=== PATIENT | female | born 1985 | race Caucasian/White ===

== ENCOUNTER → 2024-11-25 16:24 | Outpatient (REF) | payer OTHER, SELFPAY | LOC: PNTC 16:24 | PROVIDERS: ATTENDING PHYSICIAN Obstetrics & Gynecology | DX: O09.819 Supervision of pregnancy resulting from assisted reproductive technology, unspecified trimester (principal); O14.00 Mild to moderate pre-eclampsia, unspecified trimester | CPT/HCPCS: 76805 ==

== ENCOUNTER → 2024-12-22 15:55 | Outpatient (REF) | payer OTHER, SELFPAY | LOC: PNTC 15:55 | PROVIDERS: ATTENDING PHYSICIAN Obstetrics & Gynecology | DX: O09.519 Supervision of elderly primigravida, unspecified trimester (principal); O09.819 Supervision of pregnancy resulting from assisted reproductive technology, unspecified trimester; O10.019 Pre-existing essential hypertension complicating pregnancy, unspecified trimester | CPT/HCPCS: 76811; 76817 ==

== ENCOUNTER → 2025-01-26 13:28 | Outpatient (REF) | payer OTHER, SELFPAY | LOC: PNTC 13:28 | PROVIDERS: ATTENDING PHYSICIAN Student in an Organized Health Care Education/Training Program | DX: O99.210 Obesity complicating pregnancy, unspecified trimester (principal); O10.119 Pre-existing hypertensive heart disease complicating pregnancy, unspecified trimester; O09.819 Supervision of pregnancy resulting from assisted reproductive technology, unspecified trimester | CPT/HCPCS: 76816 ==

== ENCOUNTER → 2025-02-15 16:17 | Outpatient (REF) | payer OTHER, SELFPAY | LOC: PNTC 16:17 | PROVIDERS: ATTENDING PHYSICIAN Obstetrics & Gynecology | DX: O99.210 Obesity complicating pregnancy, unspecified trimester (principal); O09.819 Supervision of pregnancy resulting from assisted reproductive technology, unspecified trimester; O10.019 Pre-existing essential hypertension complicating pregnancy, unspecified trimester | CPT/HCPCS: 76816 ==

== ENCOUNTER → 2025-03-17 11:51 | Outpatient (REF) | payer OTHER, SELFPAY | LOC: PNTC 11:51 | PROVIDERS: ATTENDING PHYSICIAN Student in an Organized Health Care Education/Training Program | DX: O99.210 Obesity complicating pregnancy, unspecified trimester (principal); O99.350 Diseases of the nervous system complicating pregnancy, unspecified trimester; O10.019 Pre-existing essential hypertension complicating pregnancy, unspecified trimester | CPT/HCPCS: 76816 ==

== ENCOUNTER 2025-03-24 12:58 | Observation (INO) | payer OTHER, SELFPAY ==
[2025-03-24 13:04] VITALS: BP 131/71; BMI 45.8
== END 2025-03-24 17:56 | disposition home or self-care (01) ==
LOC: LDRP 12:58
PROVIDERS: ADMITTING PHYSICIAN Student in an Organized Health Care Education/Training Program
DX: O10.013 Pre-existing essential hypertension complicating pregnancy, third trimester (principal); Z3A.33 33 weeks gestation of pregnancy
CPT/HCPCS: 59025; 76818

== ENCOUNTER → 2025-04-07 08:59 | Outpatient (REF) | payer OTHER, SELFPAY | LOC: PNTC 08:59 | PROVIDERS: ATTENDING PHYSICIAN Student in an Organized Health Care Education/Training Program | DX: O10.019 Pre-existing essential hypertension complicating pregnancy, unspecified trimester (principal); O99.213 Obesity complicating pregnancy, third trimester; O09.813 Supervision of pregnancy resulting from assisted reproductive technology, third trimester; O36.8330 Maternal care for abnormalities of the fetal heart rate or rhythm, third trimester, not applicable or unspecified | CPT/HCPCS: 59025; 76818 ==

== ENCOUNTER → 2025-04-14 09:51 | Outpatient (REF) | payer OTHER, SELFPAY | LOC: PNTC 09:51 | PROVIDERS: ATTENDING PHYSICIAN Student in an Organized Health Care Education/Training Program | DX: O99.210 Obesity complicating pregnancy, unspecified trimester (principal); O09.819 Supervision of pregnancy resulting from assisted reproductive technology, unspecified trimester; O10.019 Pre-existing essential hypertension complicating pregnancy, unspecified trimester | CPT/HCPCS: 59025; 76816; 76818 ==

== ENCOUNTER → 2025-04-19 11:27 | Outpatient (REF) | payer OTHER, SELFPAY | LOC: PNTC 11:27 | PROVIDERS: ATTENDING PHYSICIAN Student in an Organized Health Care Education/Training Program | DX: O09.529 Supervision of elderly multigravida, unspecified trimester (principal); O99.210 Obesity complicating pregnancy, unspecified trimester; O09.819 Supervision of pregnancy resulting from assisted reproductive technology, unspecified trimester; O10.019 Pre-existing essential hypertension complicating pregnancy, unspecified trimester | CPT/HCPCS: 59025; 76815 ==

== ENCOUNTER → 2025-04-28 11:25 | Outpatient (REF) | payer OTHER, SELFPAY | LOC: PNTC 11:25 | PROVIDERS: ATTENDING PHYSICIAN Student in an Organized Health Care Education/Training Program | DX: O99.210 Obesity complicating pregnancy, unspecified trimester (principal); O09.819 Supervision of pregnancy resulting from assisted reproductive technology, unspecified trimester; O10.019 Pre-existing essential hypertension complicating pregnancy, unspecified trimester | CPT/HCPCS: 59025; 76818 ==

== ENCOUNTER 2025-04-30 09:33 | Observation (INO) | payer OTHER, SELFPAY ==
[2025-04-30 09:39] VITALS: BP 143/78; BMI 49.4
== END 2025-04-30 12:45 | disposition home or self-care (01) ==
LOC: LDRP 09:33
PROVIDERS: ADMITTING PHYSICIAN Obstetrics & Gynecology
DX: O10.913 Unspecified pre-existing hypertension complicating pregnancy, third trimester (principal); Z3A.38 38 weeks gestation of pregnancy
CPT/HCPCS: 76818; 36415; 76819; 86850; 86900; 86901; G0378

== ENCOUNTER 2025-05-03 19:14 | Inpatient (IN) | payer OTHER, SELFPAY ==
[2025-05-03 19:21] VITALS: BP 124/62; BMI 49.9
[2025-05-03 20:03] LABS: Hematocrit 32.7 % (37.0-47.0); Hemoglobin 11.2 g/dL (12.0-16.0); Mean Corp Hgb Conc. 34.3 g/dL (33.0-37.0); Mean Corpuscular Volume 88.1 fL (81.0-99.0); Nucleated Red Blood Cells % 0 %; Platelet Count 248 10^3/uL (130-400); Red Cell Dist. Width 14.1 % (11.5-14.5)
[2025-05-03] MEDS: CYTOTEC 25 MICROGRAM VAG (20:04)
[2025-05-03] MEDS: TRANDATE 200 MG PO (20:04)
[2025-05-03] MEDS: BENADRYL 50 MG PO (20:41)
[2025-05-03] MEDS: ATIVAN 1 MG PO (20:41)
[2025-05-03 21:08] LABS: ALT (SGPT) 24 U/L (0-35); AST (SGOT) 24 U/L (14-36); Albumin 3.4 g/dl (3.5-5.0); Alkaline Phosphatase 145 U/L (38-126); Blood Urea Nitrogen 14 mg/dl (7-17); Calcium 9.4 mg/dl (8.4-10.2); Carbon Dioxide 26 mmol/L (22-30); Chloride 104 mmol/L (98-107); Estimated Creatinine Clearance > 125 ml/min; Glucose 107 mg/dl (70-99); Potassium 4.3 mmol/L (3.5-5.1); Sodium 135 mmol/L (135-145); Total Protein 5.9 g/dl (6.3-8.2); eGFR > 60.00
[2025-05-04] MEDS: CYTOTEC 25 MICROGRAM PO (00:07)
[2025-05-04] MEDS: LR 1000 IV ×3 (00:08→22:34)
[2025-05-04] MEDS: CYTOTEC PO ×5 (06:34→20:03)
[2025-05-04] MEDS: TRANDATE 200 MG PO ×2 (08:09→20:02)
[2025-05-04] MEDS: PENICILLIN 110 UNITS IV (09:00)
[2025-05-04] MEDS: PITOCIN 30 UNITS/NSS 500 ML IV (09:00)
[2025-05-04] MEDS: PENICILLIN 55 UNITS IV ×3 (13:03→21:00)
[2025-05-04] MEDS: STADOL 1 MG IV (16:30)
[2025-05-04] MEDS: FENTANYL/BUPIVACAINE 100 EPIDURAL (18:32)
[2025-05-04] MEDS: SUBLIMAZE 100 MCG EPIDURAL (18:32)
[2025-05-04] MEDS: COLACE 100 MG PO (20:02)
[2025-05-05] MEDS: PENICILLIN 55 UNITS IV ×2 (00:58→05:06)
[2025-05-05] MEDS: CYTOTEC PO ×3 (01:01→09:51)
[2025-05-05] MEDS: ATIVAN 1 MG PO (01:46)
[2025-05-05] MEDS: FENTANYL/BUPIVACAINE 100 EPIDURAL (02:15)
[2025-05-05] MEDS: TYLENOL 975 MG PO (07:22)
[2025-05-05] MEDS: BICITRA 30 ML PO (07:23)
[2025-05-05] MEDS: ANCEF 15 MG IV (07:23)
[2025-05-05] MEDS: ZITHROMAX INFUSION 250 IV (07:24)
[2025-05-05] MEDS: PITOCIN 30 UNITS/NSS 500 ML IV ×2 (08:00→11:50)
[2025-05-05] MEDS: PENICILLIN IV (09:52)
[2025-05-05] MEDS: COLACE 100 MG PO ×2 (09:58→20:29)
[2025-05-05] MEDS: TRANDATE 200 MG PO ×2 (09:58→20:29)
[2025-05-05] MEDS: LR 1000 IV ×2 (10:02→17:30)
[2025-05-05] MEDS: TORADOL 15 MG IV ×3 (11:01→23:06)
[2025-05-05] MEDS: ZOFRAN 4 MG IV (11:05)
[2025-05-06] MEDS: TYLENOL 650 MG PO ×4 (01:21→23:50)
[2025-05-06] MEDS: ATIVAN 1 MG PO (01:30)
[2025-05-06 05:10] LABS: Hematocrit 26.7 % (37.0-47.0); Hemoglobin 9.1 g/dL (12.0-16.0); Mean Corp Hgb Conc. 34.1 g/dL (33.0-37.0); Mean Corpuscular Volume 91.4 fL (81.0-99.0); Platelet Count 214 10^3/uL (130-400); Red Cell Dist. Width 14.4 % (11.5-14.5)
[2025-05-06] MEDS: TORADOL 15 MG IV (06:38)
[2025-05-06] MEDS: COLACE 100 MG PO ×2 (07:44→19:28)
[2025-05-06] MEDS: TRANDATE 200 MG PO ×2 (07:45→19:28)
[2025-05-06] MEDS: FEOSOL 325 MG PO (07:45)
[2025-05-06] MEDS: PRENATAL PLUS 1 TABLET PO (07:45)
--- NOTE | 2025-05-06 07:48 | W.PN.ANS.POP ---
Anesthesia Post Operative
- Anesthesia Post Op Note
Vital Signs Stable-See Nursing Note: Yes
Airway Patent: Yes
Adequate Pain Control: Yes
Change in Mental Status: No
Current Postoperative Nausea & Vomiting: No
Anesthesia Complications: No
General Anesthetic Recall: No
Unplanned Admission: No
Post Op Hydration Adequate: Yes
- -
Pt awake and alert, OOB to chair with no anesthesia related c/o at time of post op visit.
[2025-05-06] MEDS: MOTRIN 600 MG PO ×2 (16:18→22:31)
[2025-05-07] MEDS: TYLENOL 650 MG PO ×2 (04:43→10:26)
[2025-05-07] MEDS: MOTRIN 600 MG PO ×2 (04:43→10:26)
[2025-05-07] MEDS: FEOSOL 325 MG PO (07:23)
[2025-05-07] MEDS: PRENATAL PLUS 1 TABLET PO (07:24)
[2025-05-07] MEDS: COLACE 100 MG PO (07:25)
[2025-05-07] MEDS: TRANDATE 200 MG PO (07:25)
[2025-05-07 13:16] LABS: Syphilis/T. pallidum Ab Reflex Negative (Negative)
--- NOTE | 2025-05-10 16:53 | W.DS.TRANS ---
DC Summary - Manager Social Work
-
Discharge Instructions:
Discharge Diagnosis/Procedures section for arrest of dilation, chronic
hypertension
Diet No restrictions
Activity No strenuous activity
Driving Restrictions No driving for 2 weeks
Bathing Restrictions OK to Shower
Instructions:
Stand-Alone Forms: LDRP Delivery
LDRP Hypertensive Disorders
Changes to Home Medications: No
Discharge Medications:
DC Medications w/original date entered in [employer]
labetalol 200 mg tablet 200 mg PO BID Blood Pressure 03/24/25
Iron (ferrous sulfate) 65 mg PO DAILY Supplement 05/03/25
prenat.vits,garo,fhq-gaip-mdllj 1 tab PO DAILY Supplement 05/03/25
acetaminophen 325 mg tablet 650 mg (2 x 325 mg) PO Q4HPRN PRN mild pain #1 tab 05/07/25
ibuprofen 600 mg tablet 600 mg PO Q6HPRN PRN cramps #60 tabs 05/07/25
docusate sodium 100 mg capsule (Colace) 100 mg PO DAILY Gastrointestinal Issue 05/09/25
Home Medication Changes
Pending Results: No
--- NOTE | 2025-05-10 16:54 | W.DCSUMMARY ---
Discharge Summary
Discharge Data
Date of Admission: 05/03/25
Date of Discharge: 05/07/25
-
Pending Results: No
Hospital Course
Patient is a 39yo @39.2 who presented to labor and delivery for induction of labor on 05/03 for chronic hypertension on labetalol 200mg BID, advanced maternal age, and IVF . On admission, she was 1/70 and induction was started with
Cytotec. On the morning of 05/04, she had made minimal change and was 4/80. She was offered a Cook balloon, but declined. Pitocin was started. At 1400, she was unchanged and was again offered a cook balloon. Cook balloon was placed at 1530. Around
1820, she received an epidural. At 2130, the cook balloon was out and she was 6/80/-2. Artificial rupture of membranes was performed for blood tinged fluid. At 0125, she was 7/80/-2. She remained unchanged at 0630 and was offered to continue with
induction or proceed with primary section for arrest of labor and she wanted to proceed with primary section. On 05/05, she underwent primary low transverse section, delivering a viable male infant. The procedure was
complicated by a qualitative blood loss of 1270cc. On postop day one, her hemoglobin was 9.1. She was complaining of shortness of breath and given her risk factors, PE study was ordered. PE study was negative. On postop day two, she was doing well
with no concerns and desired early discharge home. She was tolerating a regular diet, voiding spontaneously, passing flatus and had no heavy lochia. Her blood pressures were well controlled on labetalol 200mg BID and she had no signs of
preeclampsia. She was discharged home after discharge instructions and return precautions were reviewed. She was instructed to follow up in 2 weeks for an incision check. Signs and symptoms of preeclampsia were also reviewed.
Discharge Plan
-
Patient Disposition: Home (Routine Discharge)
Discharge Diagnosis/Procedures: section for arrest of dilation, chronic hypertension
Condition: Good
Diet: No restrictions
Activity: No strenuous activity
Driving Restrictions: No driving for 2 weeks
Bathing Restrictions: OK to Shower
Stand Alone Forms: LDRP Delivery, LDRP Hypertensive Disorders
Referrals:
UNKNOWN - PT NOT,INTERVIEWE [Family Provider]
Monica Forbes MD [Active, Gynecology] - in two weeks
Prescriptions:
New
acetaminophen 325 mg Tablet
650 mg PO Q4HPRN PRN (Reason: mild pain) Qty: 1 0RF
ibuprofen 600 mg Tablet
600 mg PO Q6HPRN PRN (Reason: cramps) Qty: 60 0RF
Continued
labetalol 200 mg Tablet
200 mg PO BID
prenat.vits,garo,gyt-cmqq-qkljf Tablet
1 tab PO DAILY
Iron (ferrous sulfate)
65 mg PO DAILY
Discontinued
Baby Aspirin
81 mg PO DAILY
No Action
docusate sodium [Colace] 100 mg Capsule
100 mg PO DAILY
Discharge Orders:
Discharge Patient (As Directed); Ordered 05/07/25
Ordered By: Jessy Mello
Discharge Date and Time
Discharge Date/Time: 05/07/25 15:15
Print Language: GUAMANIAN
== END 2025-05-07 15:15 | disposition home or self-care (01) | DRG 788 ==
LOC: LDRP 19:14
PROVIDERS: Obstetrics & Gynecology; ADMITTING PHYSICIAN Obstetrics & Gynecology
PROC: 10D00Z1 Extraction of Products of Conception, Low, Open Approach (ICD-10-PCS; 2025-05-05)
DX: O62.0 Primary inadequate contractions (principal); Z3A.39 39 weeks gestation of pregnancy; Z37.0 Single live birth; O16.4 Unspecified maternal hypertension, complicating childbirth; O99.824 Streptococcus B carrier state complicating childbirth; O99.284 Endocrine, nutritional and metabolic diseases complicating childbirth; E28.2 Polycystic ovarian syndrome; D25.9 Leiomyoma of uterus, unspecified; O34.13 Maternal care for benign tumor of corpus uteri, third trimester
CPT/HCPCS: 71275; 80053; 85025; 85027; 86780; 86850; 86900; 86901; 88307; Q9967

== ENCOUNTER 2025-05-09 06:26 | Inpatient (IN) | payer OTHER, SELFPAY ==
[2025-05-09] VITALS (7 sets, daily range): BP systolic 142–178; BP diastolic 71–82; BMI 50.1; BMI 47.7
--- NOTE | 2025-05-09 03:42 | ED.GENMED ---
History of Present Illness
<Brigida Shetty MD, Resident - Last Filed: 05/09/25 06:48>
General
Chief Complaint: Breathing Problem
Time Seen by Provider: 05/09/25 03:46
History of Present Illness
History of Present Illness:
Patient is a 39-year-old female who presents to the emergency department with complaints of shortness of breath, pain on deep inspiration, and a rattling sound in her chest. She was recently discharged from [facility] after undergoing a
. she was in labor for greater than 24 hours on Pitocin and following her labor she had persistent edema with shortness of breath prompting a CT PE to be conducted. CT PE conducted on 05/06/2025 was without any evidence of acute pulmonary
thromboembolism. She was discharged and believe that she was slowly improving but unfortunately this evening she started to experience a rib and chest pain localized to the right side of her chest at around 7 PM. She went to sleep but was woken up
by family after they heard her having a rattling sound in her chest around 12:30 AM. she states that the edema in her thighs is slightly improved but she continues to have persistent pedal edema. She does not have any nausea vomiting or diarrhea.
She does not have any chest pain, dizziness, or signs of syncope.
Past History
<Brigida Shetty MD, Resident - Last Filed: 05/09/25 06:48>
Past History
ED Past Medical History: HTN and Psychiatric ( anxiety)
ED Past Surgical History:
Social History
Tobacco: Non-smoker
Alcohol: Occasional
Drug: None
Personal:
Living: with family
Review of Systems
<Brigida Shetty MD, Resident - Last Filed: 05/09/25 06:48>
Review of Systems
Constitutional: Reports no symptoms
EENT: Reports no symptoms
Respiratory: Reports trouble breathing
Cardiac: Reports no symptoms
ABD/GI: Reports no symptoms
: Reports no symptoms
Musculoskeletal: Reports no symptoms
Skin: Reports no symptoms
Neurological: Reports no symptoms
Endocrine: Reports no symptoms
Hematologic/Lymphatic: Reports no symptoms
Psychiatric: Reports no symptoms
Phy Exam
<Brigida Shetty MD, Resident - Last Filed: 05/09/25 06:48>
General Physical Exam
General Presentation: well appearing and no apparent distress
General age: appears stated age
General Skin: warm and dry
General Habitus: normal
General Mental: alert
General Hydration: appears well hydrated
Cardiovascular Exam
Cardiovascular Exam: regular rate/rhythm, no gallop, no JVD, no murmur and other ( 3+ pedal edema bilaterally)
Pulmonary Exam
Breath Sounds: Crackles: left upper, left lower, right upper, right lower and generalized and Rhonchi: left upper, left lower, right upper, right lower and generalized
Musculoskeletal Exam
Musculoskeletal Exam: edema ( 3+ pedal edema bilaterally)
Skin Exam
Skin Exam: normal color and warm/dry
Psychiatric Exam
Psychiatric Exam: normal mood/affect
Scores
<Fransisca Garg, DO - Last Filed: 05/09/25 07:32>
Heart Failure Risk
Heart Failure Risk Score: Yes
History of Stroke or TIA: No
History of intubation for respiratory distress: No
Heart rate on ED arrival >/= 110: No
SaO2 <90% on arrival on room air: Yes
HR >/=110 during 3min walk test (or too ill to perform test): Yes
ECG has acute ischemic changes: No
Urea >/=12mmol/L (BUN 33.6mg/dL): No
Serum CO2>/=35mmol/L: No
Troponin I or T elevated to VA Level (0.4mg/dL): No
NT-proBNP >/=5,000ng/L (5,000pg/ml): No
HF Risk Score: 3
Admission Status: HIGH RISK 15.9% Consider SNF treatment or admission to hospital
Course
<Brigida Shetty MD, Resident - Last Filed: 05/09/25 06:48>
Orders/Labs/Results
Orders:
Orders
05/09/25 03:43
CR Chest - 2 Views Urgent
Comment:
Reason For Exam: Shortness of breath, rhonchi+ crackles bilaterally
05/09/25 03:48
Add On- LAB Urgent
Tests Added?: BNP
Electrocardiogram (*1) Urgent
Reason for Study: Shortness of Breath
EKG- Treatment ONCE
05/09/25 03:55
Complete Blood Count/No Diff Urgent
Comprehensive Metabolic Panel Urgent
D-Dimer Urgent
NT-proBNP Urgent
Comment: ADD ON
Troponin I Urgent
Ipratropium/Albuterol Sulfate [Duoneb] 3 ml INH R NOW STA
05/09/25 05:15
Furosemide [Lasix] 40 mg IV ONCE ONE
05/09/25 06:07
Admit/Transfer Patient As Directed
Co-Sign Provider:
Level of Care: Inpatient admission
Assign to:: Telemetry
Physician / Group: Mk
Diagnosis: New onset CHF
Reason for Telemetry: Subacute Heart Failure
Date to Stop Telemetry: 05/11/25
Time to Stop Telemetry: 11:00
Reason for Hospitalization: CHF
Expected length of stay greater than two midnights?: Yes
ELOS- Estimated Length of Stay in days: 2
I certify the patient meets the requirements for IP care: Yes
PRN Pain Medication Management As Directed
May give lesser potent ordered pain med per pt: Yes
preference::
Protocol:: Medication orders for pain may be administered in a
manner that supports deferring to patient preference
when the pt is:
- Requesting an ordered lesser potent pain medication.
Least to most potent pain medications are defined
as: acetaminophen < NSAID < tramadol < opioids
(morphine, oxycodone, hydromorphone).
- Requesting a lesser dose of the same medication IF
ORDERED.
- Requesting a less intrusive route of administration
if both routes are prescribed by the provider (PO <
IV).
05/09/25 06:08
Code Status As Directed
Resuscitation Status: Full Code
05/11/25 11:00
DC Protocol for Telemetry ONCE
Abnormal Lab Results
05/09/25
03:55
WBC 13.5 H 10^3/uL
(4.8-10.8)
RBC 2.92 L 10^6/uL
(4.20-5.40)
Hgb 9.0 L g/dL
(12.0-16.0)
Hct 26.4 L %
(37.0-47.0)
D-Dimer 1.67 H ug/mlFEU
(0.00-0.50)
BUN 25 H mg/dl
(7-17)
Total Protein 5.3 L g/dl
(6.3-8.2)
Albumin 3.0 L g/dl
(3.5-5.0)
05/09/25 03:55
05/09/25 03:55
Vital Signs
Initial and Last Documented VS:
Initial Vital Signs
Temp Pulse Resp BP Pulse Ox
98 F 66 22 148/76 91
05/09/25 03:06 05/09/25 03:06 05/09/25 03:06 05/09/25 03:06 05/09/25 03:06
Last Documented Vital Signs
Temp Pulse Resp BP Pulse Ox
98 F 69 19 142/71 90
05/09/25 03:06 05/09/25 06:30 05/09/25 06:30 05/09/25 05:20 05/09/25 03:58
<Fransisca Garg, DO - Last Filed: 05/09/25 07:32>
Orders/Labs/Results
Orders:
Orders
05/09/25 03:43
CR Chest - 2 Views Urgent
Comment:
Reason For Exam: Shortness of breath, rhonchi+ crackles bilaterally
05/09/25 03:48
Add On- LAB Urgent
Tests Added?: BNP
Electrocardiogram (*1) Urgent
Reason for Study: Shortness of Breath
EKG- Treatment ONCE
05/09/25 03:55
Complete Blood Count/No Diff Urgent
Comprehensive Metabolic Panel Urgent
D-Dimer Urgent
NT-proBNP Urgent
Comment: ADD ON
Troponin I Urgent
Ipratropium/Albuterol Sulfate [Duoneb] 3 ml INH R NOW STA
05/09/25 05:15
Furosemide [Lasix] 40 mg IV ONCE ONE
05/09/25 06:07
Admit/Transfer Patient As Directed
Co-Sign Provider:
Level of Care: Inpatient admission
Assign to:: Telemetry
Physician / Group: Mk
Diagnosis: New onset CHF
Reason for Telemetry: Subacute Heart Failure
Date to Stop Telemetry: 05/11/25
Time to Stop Telemetry: 11:00
Reason for Hospitalization: CHF
Expected length of stay greater than two midnights?: Yes
ELOS- Estimated Length of Stay in days: 2
I certify the patient meets the requirements for IP care: Yes
PRN Pain Medication Management As Directed
May give lesser potent ordered pain med per pt: Yes
preference::
Protocol:: Medication orders for pain may be administered in a
manner that supports deferring to patient preference
when the pt is:
- Requesting an ordered lesser potent pain medication.
Least to most potent pain medications are defined
as: acetaminophen < NSAID < tramadol < opioids
(morphine, oxycodone, hydromorphone).
- Requesting a lesser dose of the same medication IF
ORDERED.
- Requesting a less intrusive route of administration
if both routes are prescribed by the provider (PO <
IV).
05/09/25 06:08
Code Status As Directed
Resuscitation Status: Full Code
05/11/25 11:00
DC Protocol for Telemetry ONCE
Abnormal Lab Results
05/09/25
03:55
WBC 13.5 H 10^3/uL
(4.8-10.8)
RBC 2.92 L 10^6/uL
(4.20-5.40)
Hgb 9.0 L g/dL
(12.0-16.0)
Hct 26.4 L %
(37.0-47.0)
D-Dimer 1.67 H ug/mlFEU
(0.00-0.50)
BUN 25 H mg/dl
(7-17)
Total Protein 5.3 L g/dl
(6.3-8.2)
Albumin 3.0 L g/dl
(3.5-5.0)
05/09/25 03:55
05/09/25 03:55
Vital Signs
Initial and Last Documented VS:
Initial Vital Signs
Temp Pulse Resp BP Pulse Ox
98 F 66 22 148/76 91
05/09/25 03:06 05/09/25 03:06 05/09/25 03:06 05/09/25 03:06 05/09/25 03:06
Last Documented Vital Signs
Temp Pulse Resp BP Pulse Ox
98 F 69 19 142/71 90
05/09/25 03:06 05/09/25 06:30 05/09/25 06:30 05/09/25 05:20 05/09/25 03:58
<Brigida Shetty MD, Resident - Last Filed: 05/09/25 06:48>
*Pulse Oximetry
SaO2: 90
Oxygen Mode of Delivery: Room air
Patient hypoxic: no
*Critical Care Note
Total Time (30-74mins, 75-104mins- exclusive of procedures): 60
<Fransisca Garg, DO - Last Filed: 05/09/25 07:32>
*Radiology
Radiology exam reviewed: preliminary read by ED provider
*Pulse Oximetry
Patient hypoxic: yes
*EKG
Interpreted by ED Provider?: Yes
Interpretation: normal
Comparison EKG: no comparison EKG present
Rate: normal
Rhythm: sinus
[place]: normal axis
Interval: normal interval
QRS Pattern: normal QRS
Ischemia: no ischemia
*[employer] Interpretation
Rate: normal
Interpretation: normal
Rhythm: sinus
*Critical Care Note
Total Time (30-74mins, 75-104mins- exclusive of procedures): Not Applicable
<Brigida Shetty MD, Resident - Last Filed: 05/09/25 06:48>
Update Note
Update Note:
Problem List:
Chest pain radiating to the back
shortness of breath
bilateral pedal edema
Plan:
CBC and CMP ordered
D-dimer ordered
chest x-ray ordered
proBNP ordered
troponins
DuoNebs given
Differential Diagnoses:
post pulmonary edema
pulmonary embolus
pneumonia
Radiology:
- chest x-ray conducted on 05/09/2025:
EKG:
- EKG on 05/09/2025:
Labs:
CBC with leukocytosis of 13.5 white blood cell count
D-dimer
CMP
Updates:
Patient pleasant and not in acute distress. Room pulse ox is at 90% on room air. Patient appears nontoxic
there is concern for acute CHF, acute asthmatic bronchitis, pneumonia.
Rales and rhonchi heard on auscultation. Based on presentation PE is less likely - Especially considering CT PE was done prior to her discharge a few days prior.
Will give DuoNebs and check CXR
CXR is concerning for possible CHF with mild cardiomegaly.
BNP elevated at 1430. troponins within normal limits
IV Lasix is given
plan to admit to hospital service for possible fluid overload. Gynecology consulted
recommend telemetry and echocardiogram
ED Attending Note
<Brigida Shetty MD, Resident - Last Filed: 05/09/25 06:48>
-
Portions of this chart may have been created with voice recognition software.� Occasional wrong word or��sound alike� substitutions may have occurred due to the inherent limitations of voice recognition software.
<Fransisca Garg DO - Last Filed: 05/09/25 07:32>
ED Attending Note
Patient seen and examined by attending physician: Yes
I performed a history and physical exam of patient and discussed management with resident, I reviewed resident's note and agree with documented findings and plan of care.: Yes
ED Attending Note:
This is a 39-year-old woman 1, para 1 who delivered via 3 days ago due to failure to progress after 3 days of induction with Pitocin. She has history of obesity, chronic hypertension and was noted to have bilateral lower extremity
edema towards the end of her that has worsened over the past week. Noted to have shortness of breath postop day 1 and underwent unremarkable PE study showing no PE, no consolidation. Discharged to home yesterday, May 08. Male
is bottlefeeding.
She presents this morning with increasing shortness of breath, worse at nighttime with lying down with a 'gurgling noises' when breathing. She has not had a cough, no fever and or chills. She has noted intermittent bilateral lateral lower chest
discomfort that radiates to her back intermittently, more so with lying supine. She continues with bilateral lower extremity edema but denies pain.
Chronically maintained on labetalol for hypertension. She states her blood pressure was well-controlled throughout her .
39-year-old obese woman appears her stated age. Bright alert, pleasant, appears in no acute distress. Room air pulse ox 90%. Mild resting tachypnea. No cough appreciated.
Heart is regular rate and rhythm.
Lungs with rales and rhonchi bilaterally three-quarter to the way up.
Abdomen is rotund, soft, no appreciable tenderness.
Extremities with somewhat tense mildly pitting edema bilateral lower extremities to the thighs. Peripheral pulses are full and equal. Nontender.
Concern for acute CHF, acute asthmatic bronchitis, pneumonia. Concern for -induced cardiomyopathy.
With rales and rhonchi on auscultation, PE is unlikely. Also reassuring that PE study was negative just 3 days ago.
Labs are pending. Will give DuoNeb nebulizer. Will check chest x-ray.
05:30
Chest x-ray concerning for mild CHF, mild cardiomegaly. BNP elevated 1400.
EKG is unremarkable. Troponin is negative.
Will give an IV dose of Lasix.
Will plan to admit to hospital service and consult [facility].
Patient will require ongoing telemetry and will require echocardiogram.
Discharge Plan
Departure
Patient Disposition: Admit
Date of Disposition: 05/09/25
Time of Disposition: 05:42
Admit to doctor: Mk
Presentation/result/management discussed w/ accepting MD/DO: Hospitalist
Discharge Problem:
Acute CHF (congestive heart failure)
Interventions
Interventions:
*Risk Screen - Suicide Last Done: 05/09/25 03:17
*General Assessment Last Done: 05/09/25 03:17
*Neglect/Abuse Screening Last Done: 05/09/25 03:17
*ED- Fall Risk Assessment Last Done: 05/09/25 03:17
*ED COVID-19 Vaccine History Last Done: 05/09/25 03:17
ED- Cardiac Assessment Last Done: 05/09/25 03:17
ED- Pulmonary Assessment Last Done: 05/09/25 03:17
[2025-05-09] MEDS: DUONEB 3 ML INH (04:06)
[2025-05-09 04:08] LABS: Hematocrit 26.4 % (37.0-47.0); Hemoglobin 9.0 g/dL (12.0-16.0); Mean Corp Hgb Conc. 34.1 g/dL (33.0-37.0); Mean Corpuscular Volume 90.4 fL (81.0-99.0); Platelet Count 279 10^3/uL (130-400); Red Cell Dist. Width 14.1 % (11.5-14.5)
[2025-05-09 04:30] LABS: ALT (SGPT) 31 U/L (0-35); AST (SGOT) 25 U/L (14-36); Albumin 3.0 g/dl (3.5-5.0); Alkaline Phosphatase 112 U/L (38-126); Blood Urea Nitrogen 25 mg/dl (7-17); Calcium 9.7 mg/dl (8.4-10.2); Carbon Dioxide 27 mmol/L (22-30); Chloride 107 mmol/L (98-107); Estimated Creatinine Clearance 120 ml/min; Glucose 82 mg/dl (70-99); Potassium 4.7 mmol/L (3.5-5.1); Sodium 136 mmol/L (135-145); Total Protein 5.3 g/dl (6.3-8.2); eGFR > 60.00
[2025-05-09 04:41] LABS: D-Dimer 1.67 ug/mlFEU (0.00-0.50); Troponin I < 0.012 ng/ml
[2025-05-09] MEDS: LASIX 40 MG IV (05:20)
--- NOTE | 2025-05-09 05:49 | HPS.HSE ---
Family Physician
-
Family Physician: Griffin Alvarado
Chief Complaint
-
Shortness of breath
History of Present Illness
This is a ten 9-year-old with past medical history significant for anxiety and hypertension and is now postop day 4 status post with discharge 2 days ago coming to the hospital with shortness of breath that started tonight as well as
hearing rattling sounds in the lungs.
Patient reported that prior to the surgery she has been having episodes of anxiety and she felt that she was having some panic attacks. She also developed claustrophobia and says she was very stressed. She is now G1, P1. She denies any
uncontrolled hypertension during the . She denies any proteinuria during . She had appropriate weight gain and some pedal edema but denies dyspnea on exertion chest pain palpitations orthopnea or PND during .
Patient had induction with Pitocin starting on Saturday and had IV fluids old with close day without spontaneous delivery so she underwent . Post patient complained of abdominal/rib pain. She had a CT scan which rule out
embolus and had clear lungs. After discharge patient went home feeling better but today noticed some increased rib discomfort with inspiration. When she laid down she could hear some crackling and slightly wheezing sounds coming from her lungs.
Mother noticed this and requested that she be evaluated. Patient self denies orthopnea or PND. She has not been moving much lately and denies known dyspnea on exertion. She has no known sick contacts. She denies any fevers or chills. She denies
any coughing. She denies any chest pain.
On arrival in the emergency department she was afebrile, blood pressure was 140/70 with a pulse rate of 58 and she was satting 90% on room air at rest. ECG shows a sinus rhythm at a rate of 66. Chest x-ray shows increased interstitial markings and
vascular congestion without any consolidation. She had a white count 13.5 hemoglobin 9.0 and platelet 279 unchanged. Electrolytes BUN and creatinine were normal. Glucose was normal. Troponin was negative. BNP was elevated at 1400. CT PE from
9/11, was negative for PE and had clear parenchyma.
Medical History
Past Medical History
Past Medical History: Reports HTN
Past Surgical History: Reports
Social History
Tobacco: Non-smoker
Alcohol: None
Drug: None
Personal:
Family History
Family History: Not pertinent
Allergies / Home Medications
Allergies reflects when Allergies were last updated in [employer].
Home Medications with original date entered in [employer]
Allergy/Medication List:
Allergies
Allergy/AdvReac Type Severity Reaction Status Date / Time
amlodipine Allergy Swelling Verified 05/09/25 03:10
Sulfa (Sulfonamide Allergy Itching Verified 05/09/25 03:10
Antibiotics)
Home Medications
labetalol 200 mg tablet 200 mg PO BID Blood Pressure 03/24/25
Iron (ferrous sulfate) 65 mg PO DAILY Supplement 05/03/25
prenat.vits,garo,alm-kphu-mfviy 1 tab PO DAILY Supplement 05/03/25
acetaminophen 325 mg tablet 650 mg (2 x 325 mg) PO Q4HPRN PRN mild pain #1 tab 05/07/25
ibuprofen 600 mg tablet 600 mg PO Q6HPRN PRN cramps #60 tabs 05/07/25
docusate sodium 100 mg capsule (Colace) 100 mg PO DAILY 05/09/25
Review of Systems
-
Constitutional: Reports No Symptoms
EENT: Reports No Symptoms
Respiratory: Reports Trouble Breathing
Cardiac: Reports No Symptoms
Abdomen/GI: Reports No Symptoms
: Reports No Symptoms
Musculoskeletal: Reports No Symptoms
Skin: Reports No Symptoms
Neurological: Reports No Symptoms
Endocrine: Reports No Symptoms
Hematologic/Lymphatic: Reports No Symptoms
Psych: Reports No Symptoms
Physical Exam
Vital Signs
Vital Signs
Temp Pulse Resp BP Pulse Ox
98 F 62 22 142/71 90
05/09/25 03:06 05/09/25 05:30 05/09/25 05:30 05/09/25 05:20 05/09/25 03:58
Physical Exam
General: Well Developed, Well Nourished and No Apparent Distress
HEENT: NormoCephalic, Moist mucous membranes and Atraumatic
Respiratory: Clear
Cardiac: S1/S2 and Regular Rhythm; No Murmur or Rub
GI: Soft, Non Tender, Non Distended and Normal Bowel Sounds; No Organomegaly
Rectal: Deferred by Provider
Musculoskeletal: No Clubbing, No Cyanosis and No Edema
Skin: No Rash
Neuro: AO x 3 and Nonfocal/grossly intact
Psych: Anxious (very anxious and began crying unconsolably after learning she needed to stay overnight. )
Laboratory Results
-
05/09/25 03:55
05/09/25 03:55
Laboratory Results
Total Bilirubin 0.4 mg/dl (0.2-1.3) 05/09/25 03:55
AST 25 U/L (14-36) 05/09/25 03:55
ALT 31 U/L (0-35) 05/09/25 03:55
Alkaline Phosphatase 112 U/L (38-126) 05/09/25 03:55
Troponin I < 0.012 ng/ml 05/09/25 03:55
Data Reviewed
-
Diagnostic Radiology: Image Personally Visualized and interpreted
CT Scan: Report Reviewed by me
Medical Tests (Nuc Med, Echo, EKG etc): Image Personally Visualized and interpreted
Lab Data: Labs Reviewed by me
Old Records: Reviewed
Impression/Plan
-
IMPRESSION:
39-year-old female G1, P1 postop day #4 status post , coming in with shortness of breath and found hypoxia to 90% on room air at rest. She has 1+ pitting edema in the lower extremities bilaterally. X-ray has increased vascular markings
and increased interstitial markings. BNP is elevated at 1400. No elevations in JVD. She has some volume overload and probably nonischemic cardiomyopathy possibly related to stress. Patient is extremely anxious and reports recent anxiety attacks
and claustrophobia 1 month prior to onset of delivery. Chronic hypertension but well-controlled with labetalol prior to and during . Family history of heart disease but likely noncontributory. No sick contacts to suggest viral
cardiomyopathy. No signs of active infection. CT PE negative for PE on 9�11.
PLAN:
New onset congestive heart failure -suspect possibly stress cardiomyopathy versus volume reconstitution after extensive IV fluids presurgical procedure.
- Admit to telemetry observation
- Continue with Lasix 40 mg IV twice daily for now
- Continue labetalol for now
- Trend troponin
- Echo likely tomorrow
- Daily weights and ins and outs
- Cardiology consultation
DVT prophylaxis�SCDs
CODE STATUS�full code
--- NOTE | 2025-05-09 07:55 | W.PN.HOSP.TC ---
Today's Communication/Plan
-
Patient has completely improved and feels fine, and she really would like to go home. Discharge today
Assessment / Plan
Assessment / Plan
Physical Exam
General: Well Developed, Well Nourished and No Apparent Distress
HEENT: Normocephalic, Moist Mucous Membranes
Respiratory: Faint to mild crackles
Cardiac: S1/S2 and Regular Rhythm
GI: Soft, Non Tender, Non Distended and Normal Bowel Sounds
Musculoskeletal: No Cyanosis and No Edema
Skin: Warm. Dry.
Neuro: AAO x 3 and Nonfocal/grossly intact
Psych: Anxious
Assessment/Plan
39-year-old female G1, P1 postop day #4 (on admission) status post , coming in with shortness of breath and found hypoxia to 90% on room air at rest. She has 1+ pitting edema in the lower extremities bilaterally. X-ray has increased
vascular markings and increased interstitial markings. BNP is elevated at 1400. No elevations in JVD. She has some volume overload and probably nonischemic cardiomyopathy possibly related to stress. Patient is extremely anxious and reports
recent anxiety attacks and claustrophobia 1 month prior to onset of delivery. Chronic hypertension but well-controlled with labetalol prior to and during . Family history of heart disease but likely noncontributory. No sick contacts to
suggest viral cardiomyopathy. No signs of active infection. CT PE negative for PE on 9�11.
Suspected Flash Pulmonary Edema
- Suspected secondary to aggressive intravenous fluid regimen around 05/03 to 05/05 with 7 to ~12 L of of IV fluids
- Continue with Lasix 40 mg IV twice daily for now
- Continue labetalol for now
- Recent CT Chest PE study just a few days ago showed no pulmonary embolism
- No concern for ACS based on symptoms, EKG and troponin
- CXR suggests increased vascular markings and increased interstitial markings and also per cardiology suggested CHF
- Echo unremarkable: LV size and function are normal. Ejection fraction 65�70%. Normal RV size and function. No significant valve pathology. No pericardial effusion.
- Cardiology consultation
- Appreciate cardiology: will do one more dose of IV Lasix 20 mg today, followed by discharge today, patient is anxious to go home and be with her baby
- Follow-up with [facility] cardiology office after discharge, as per cardiology
Elevated D-Dimer - suspected from recent
DVT Prophylaxis: SCDs
CODE STATUS: Full Code
More than 30 minutes spent in discharge including
Final examination of the patient
Summarizing hospital stay
Instructions for continuing care to all relevant caregivers
Preparation of discharge records, prescriptions, and referral forms
Total time spent (in minutes): 39
Anticipated Discharge: Today
Subjective/Interval History
-
Date of Service: May 09, 2025
Patient was seen and examined. She reported significant improvement in her shortness of breath. She denied any chest pain.
Objective Data
-
Labs:
Laboratory Results
05/09/25
03:55
WBC 13.5 H
Hgb 9.0 L
Hct 26.4 L
Plt Count 279 D
Sodium 136
Potassium 4.7
Chloride 107
Carbon Dioxide 27
BUN 25 H
Creatinine 0.9
Glucose 82
Calcium 9.7
Total Bilirubin 0.4
AST 25
ALT 31
Alkaline Phosphatase 112
Vital Signs:
Vital Signs
Temp Pulse Resp BP Pulse Ox
98 F 69 19 142/71 90
05/09/25 03:06 05/09/25 06:30 05/09/25 06:30 05/09/25 05:20 05/09/25 03:58
[2025-05-09] MEDS: TYLENOL 650 MG PO (08:43)
[2025-05-09] MEDS: TRANDATE 200 MG PO (08:44)
--- NOTE | 2025-05-09 09:31 | CON.CAR ---
Addendum entered and electronically signed by Kiah New DO 05/09/25 10:29:
Contacted pharmacy to review fluid administration at the time of her delivery:
- total fluid administered to patient anywhere from 11,347 cc to 12,047 cc depending on how much epidural and oxytocin she received. Pharmacy was not able to confirm total doses. This also does not count Fluid in the OR. Per pharmacy, patient
may have received anywhere from 5000 to 7800 cc LR in OR.
Original Note:
Consultation
Consultation Request
Date/Time Consultation Requested: 05/09/25
Date/Time Consultation Performed: 05/09/25
Requesting Provider: Dr. Cooper
Performing Provider: Dr. New
Reason for Consultation: SOB
Medical History
-
Chief Complaint: Shortness of breath
History of Present Illness:
I had the pleasure to meet Arianna Carcamo along with her Matthew in ED bed 2. Arianna is a 39-year-old female with a history of PCOS and hypertension who underwent fertility and IVF now P1001. She was maintained on labetalol throughout her
with reportedly stable blood pressures. No history of gestational diabetes or preeclampsia. At 39 weeks, 2 days she presented on May 03, 2025 to [facility] for scheduled induction of labor. After a failed induction she
underwent elective with epidural anesthesia on 05/05/2025 delivering a healthy baby boy. She reported shortness of breath post which was later attributed to pain from . She had a CTA of the chest May 06, 2025
which showed no pulmonary embolism. Heart was reported normal in size with no pericardial thickening or effusion. They said the lungs were clear without pleural effusion or pneumothorax. She does report that in the last few weeks of she
was a bit more swollen which worsened following delivery. Upon returning home she noted a rattling in her chest and shortness of breath which worsened while laying down, sleeping prompting ER evaluation. She had previously planned to bottle-feed
baby; no plans for breast-feeding.
.
Presented to [facility] with room air pulse ox 90%. Chest x-ray with increased vascular markings consistent with pulmonary edema. proBNP 1430. Troponins normal. IV Lasix 4040 mg given at 5 AM. Patient reports brisk diuresis and improved
shortness of breath/rattle.
.
Family history reviewed: Mom and dad still living. Mom with hypertension. Dad healthy. Maternal grandmother with history of heart failure at later age, details unknown. 1 brother who is healthy.
.
Social history: Patient is and lives at home with family. Lifelong non-smoker. Works in [employer]; sedentary
Past Medical History
Past Medical History: Other (See above)
Past Surgical History: Other ([place] teeth, )
Social History
Tobacco: Non-Smoker
Alcohol: None
Drug: None
Personal:
Living: With Family
Employment: Employed
Family History
Family History: Other (See HPI)
Allergies / Home Medications
Allergy/AdvReac Type Severity Reaction Status Date / Time
amlodipine Allergy Swelling Verified 05/09/25 03:10
Sulfa (Sulfonamide Allergy Itching Verified 05/09/25 03:10
Antibiotics)
�Medication �Instructions �Recorded �Confirmed �Type
labetalol 200 mg tablet 200 mg PO BID Blood Pressure 03/24/25 05/09/25 History
Iron (ferrous sulfate) 65 mg PO DAILY Supplement 05/03/25 05/09/25 History
prenat.vits,garo,cpr-nuru-ddwee 1 tab PO DAILY Supplement 05/03/25 05/09/25 History
acetaminophen 325 mg tablet 650 mg (2 x 325 mg) PO Q4HPRN PRN 05/07/25 05/09/25 Rx
mild pain #1 tab
ibuprofen 600 mg tablet 600 mg PO Q6HPRN PRN cramps #60 05/07/25 05/09/25 Rx
tabs
docusate sodium 100 mg capsule 100 mg PO DAILY 05/09/25 05/09/25 History
(Colace)
Review of Systems
-
History Source: Patient and Family
All other systems: Negative unless noted
Constitutional: Weight Gain, Fatigue and Sleep Disturbance
EENT: No Symptoms
Respiratory: Trouble Breathing
Cardiac: No Symptoms
Abdomen/GI: Abdominal Pain (Post )
: No Symptoms
Musculoskeletal: Edema (Bilateral lower extremity edema and hand edema)
Skin: No Symptoms
Neurological: No Symptoms
Endocrine: No Symptoms
Hematologic/Lymphatic: No Symptoms
Physical Exam
Vital Signs
Temp Pulse Resp BP Pulse Ox
98 F 67 16 178/79 96
05/09/25 03:06 05/09/25 08:44 05/09/25 08:33 05/09/25 08:44 05/09/25 08:33
Lab Results
05/09/25 03:55
05/09/25 03:55
Troponin I Cancelled 05/09/25 20:30
Ymi-H-Persxuuwfvs Pept 1430 pg/ml 05/09/25 03:55
Physical Exam
General: Well Developed, Well Nourished, Comfortable (No conversational dyspnea; room air) and Other (Emotional about hospitalization and being away from baby)
HEENT: Normocephalic, Anicteric and Moist Mucous Membranes
Respiratory: Other (Bronchovesicular breath sounds, decreased at the base with fine crackles on the right. No wheezes)
Cardiac: S1/S2, Regular Rhythm and Peripheral Edema; Negative Murmur, Rub or Calf Tenderness
Breast: Deferred by me
GI: Soft, Distended and Other ( incision intact)
Rectal: Deferred by Provider
Skin: Warm and Dry; Negative Rash
Neuro: AO x 3 and Nonfocal/Grossly Intact
Impression / Plan
-
Ostrich Farmer: None. Consult by Dr. New
Impression/Plan:
Shortness of breath/volume overload, 4 days following failed induction and delivery of term, healthy baby boy
- proBNP 1430
- CTA chest May 06, 2025 negative for PE
- Chest x-ray and exam concerning for heart failure. Echocardiogram today for evaluation of LV systolic function and peripartum cardiomyopathy
- Hemodynamically stable with improved breathing following IV Lasix
- Continue IV Lasix 40 mg once daily
- Blood pressure stable on labetalol
- Troponin undetectable
- Twelve-lead EKG normal sinus rhythm and a normal tracing
- Renal function and electrolytes normal.
-Hemoglobin 9 status post and stable when compared to 05/06/2025 postop. Hemoglobin 11.2 at time of admission consistent with anemia of .
- Plan discussed with OB and hospitalist
- Await results of echocardiogram for further recommendation
Hypertension
-Blood pressure stable on labetalol
Obesity, BMI greater than 40
-Suspect sleep apnea and would consider outpatient evaluation once she has recovered from
Data Reviewed
-
EKG: Tracing Personally Visualized and interpreted
Radiology: Report Reviewed by me
CT Scan: Report Reviewed by me
Medical Tests (Nuc Med, Echo etc): Report Reviewed by me
Labs: Labs Reviewed by me
Old Records: Reviewed
--- NOTE | 2025-05-09 10:00 | CM ---
manager transportation reviewed patient's chart and met with patient and spouse at bedside, patient recently delivered her son and was discharged to home, patient became anxious SOB and was readmitted to hospital, per patient her mother is looking after her
son but patient is upset as her first pediatric appointment is tomorrow, patient's spouse is trying to change appointment. Patient lives in a multi level home, is independent with adl's and ambulation, no dme, home when stable.
PCP: Griffin Alvarado
Pharmacy: [facility] on [facility].
Plan; Home with spouse when stable.
[2025-05-09] MEDS: COLACE 100 MG PO (10:22)
[2025-05-09 10:45] LABS: Troponin I < 0.012 ng/ml
[2025-05-09 11:01] LABS: Urine Character Slightly Cloudy (Clear)
[2025-05-09 11:07] LABS: Urine Red Blood Cell >100 /HPF (0-2); Urine White Cell 16-20 /HPF (0-5)
--- NOTE | 2025-05-09 14:08 | CON.MD ---
Consultation - Medical
-
39-year-old female who delivered by primary LTCS on 05/05/2025 presented to the emergency room this morning with complaint of shortness of breath. Antonio's course was significant for IVF, PCOS, BMI of 41 and chronic hypertension on
labetalol 200 mg twice daily. She underwent induction of labor at 39.2 weeks. Cytotec was utilized for her cervical ripening on 05/03/2025. Only 1 L of fluid was administered from time of admission until the following morning when Pitocin was
started for induction of labor. She received an epidural for analgesia. She did not make significant progress and was diagnosed with failed induction of labor. She underwent a primary low-transverse section performed on the morning of
05/05/2025, delivering a healthy son.
Fluids excluding the amount in IV penicillin, fentanyl and what was administered in the operating room totaled approximately 7000 mL. These fluid amounts were obtained through [employer] OB charting which is a more accurate record of fluid
amounts.
On 05/06/2025 the patient had reported some pain in the upper rib regions bilaterally and she had a CTA of the chest demonstrating no pulmonary embolus. It was felt that pain she was having was related to pain from surgery. At the time, lungs were
clear without pleural effusion or pneumothorax. She reports last night had noticed more SOB which progressed overnight. Her Mother heard her breathing become more 'rattling' in nature and asked her to go to ER. Denied any chest pain, calf pain or
tenderness.
PMH: Chronic hypertension, anxiety, recent panic attacks, PCOS, IVF , BMI 41, AMA, fibroid uterus.
PSH: [place] teeth, primary LTCS, egg retrieval
Allergy: Sulfa, Tdap
Medications: PNV, labetalol 200 mg p.o. twice daily
Social history: Negative tobacco, alcohol, recreational drug use. She is
Family history: Mother hypertension, MGM CHF/heart failure
ROS: +SOB, no chest pain, no fever, chills, no calf pain or tenderness. No heavy bleeding, no incisional concerns.
No dysuria, No N/V/D/C, no abdominal pain, no back pain.
PE:
General: Pleasant female, in NAD, no apparent respiratory or other type of distress.
Cor: Regular rate
Pulmonary: No increased work of breathing. Decreased breath sounds at the base with fine crackles on the right. No wheezing. No rhonchi.
Abdomen: Soft, ND NT, incision clean, dry, intact without erythema
Extremities: Edema noted bilateral lower extremities below the knee. No calf pain or tenderness
Labs:
Hemoglobin 9.0
Hematocrit 26.4
WBC 13.5
Platelet 279
Creatinine 0.9
AST 25, ALT 31
Cardiac echo was being performed at the time I was in seeing the patient
Impression:
1. Postop day4 S/P primary low-transverse section performed for failed induction of labor, admitted with shortness of breath.
2. Bilateral pulmonary edema-suspect resultant from volume overload from long induction of labor with Pitocin as well as IV fluids over the course of 2 days. Less common, but more concerning etiology would be cardiomyopathy. Awaiting echo results
and cardiac recommendation. Patient has symptomatically improved significantly since IV Lasix given this morning. My suspicion is this is likely related to volume overload.
3. Chronic hypertension on labetalol 200 mg p.o. twice daily
4. BMI 41
5.History PCOS
6.History fibroid uterus
Plan:
Awaiting echo result and cardiology/internal medicine determination/recommendation of management.
From OB standpoint, incision is healing well and she is doing well .. She has symptomatically improved since IV Lasix. She is formula feeding. Baby is with her mother.
Time reviewing OB records from delivery, [id number] time, consulting with other providers and documentation over 45 minutes.
Consultation
-
Date/Time Consultation Requested: 05/09/25 6:00am
Date/Time Consultation Performed: 05/09/25 11:45 pm
Requesting Provider: Karlos Cooper
Performing Provider: Paola Romero DO
Reason for Consultation: pulm edema
[2025-05-09] MEDS: TYLENOL 1000 MG PO (14:34)
--- NOTE | 2025-05-09 14:42 | W.PN.UPDATE ---
Update Note
Progress Note Update
REc'd communication from cardiology that LV size and function are normal. Ejection fraction 65-70%. Normal RV size and function. No pericardial effusion.
Pulm edema likely resultant of volume overload/amt IVF over course of admission.
IV Lasix was given in ER and will be repeated this afternnon. Hospitalist, Dr. Everett planning to dc to home possibly tonight after IV Lasix with follow up recommended with CArdiology.,
Pt to see OB in 1-2 wks.
[2025-05-09] MEDS: LASIX 20 MG IV (16:38)
[2025-05-09] MEDS: FLUSH (NSS) 2 FLUSH IV (16:38)
--- NOTE | 2025-05-09 17:06 | PTCARENOTE ---
Pt admitted at aprox 0930 from ED. Pt able to walk in unassisted from stretcher. Admission and assessment completed. Pt with no c/o at this time. Vitals stable. Pt has with her. Pt oriented to room and surroundings. CHF booklet handed.
Advised her videos will be assigned on CHF. Told pt to ring for any questions and to order breakfast if desired.
== END 2025-05-09 17:04 | disposition home or self-care (01) | DRG 189 ==
LOC: 2 NORTH 06:26
PROVIDERS: ADMITTING PHYSICIAN Internal Medicine; ATTENDING PHYSICIAN Hospitalist; CONSULT PHYSICIAN Internal Medicine Cardiovascular Disease; CONSULT PHYSICIAN Obstetrics & Gynecology; EMERGENCY PHYSICIAN Emergency Medicine; FAMILY PHYSICIAN Obstetrics & Gynecology
DX: J81.0 Acute pulmonary edema (principal); R09.02 Hypoxemia; I11.0 Hypertensive heart disease with heart failure; I50.9 Heart failure, unspecified; Z88.2 Allergy status to sulfonamides; Z79.899 Other long term (current) drug therapy; Z82.49 Family history of ischemic heart disease and other diseases of the circulatory system; E28.2 Polycystic ovarian syndrome; D25.9 Leiomyoma of uterus, unspecified; F41.0 Panic disorder [episodic paroxysmal anxiety]
CPT/HCPCS: 71046; 80053; 81003; 81015; 83880; 84484; 85027; 85379; 93005; 93306; 94640; 96374; 99291

== ENCOUNTER → 2025-06-22 13:42 | Outpatient (REF) | payer OTHER, SELFPAY | LOC: RCS 13:42 | PROVIDERS: ATTENDING PHYSICIAN Internal Medicine Cardiovascular Disease; FAMILY PHYSICIAN Family Medicine | DX: R06.02 Shortness of breath (principal); Z39.2 Encounter for routine postpartum follow-up; R60.9 Edema, unspecified | CPT/HCPCS: 93306; 93356 ==

== ENCOUNTER → 2025-07-25 12:00 | Outpatient (REF) | payer OTHER, SELFPAY | LOC: DHSLP 12:00 | PROVIDERS: ATTENDING PHYSICIAN Physician Assistant Medical; FAMILY PHYSICIAN Internal Medicine Critical Care Medicine | DX: G47.33 Obstructive sleep apnea (adult) (pediatric) (principal) | CPT/HCPCS: 95800 ==